=== PATIENT | male | born 1995 | race Caucasian/White ===

== ENCOUNTER 2017-03-21 12:20 | Emergency (ER) | payer MEDICAID, OTHER ==
[2017-03-21 12:51] VITALS: BP 159/73
[2017-03-21] MEDS ORDERED: Ibuprofen 600 MG Tab PO ONE (12:56)
--- NOTE | 2017-03-21 13:50 | EDM.PDOC ---
ED HPI GENERAL MEDICAL PROBLEM - General Chief Complaint: Chest Pain Stated Complaint: CHEST PAIN Time Seen by Provider: 03/21/17 12:22 Source of Information: Reports: Patient History Limitations: Reports: No Limitations - History of Present Illness INITIAL COMMENTS - FREE TEXT/NARRATIVE: History of present illness: Patient started having chest wall pain 5 days ago. He denies any trauma, strenuous physical exertion, shortness of breath, fevers, chills or cough or dizziness. Pain radiates to his left side of his chest when he gets up from a laying position. Review of systems: As per history of present illness and below otherwise all systems reviewed and negative. Past medical history: As per history of present illness and as reviewed below otherwise noncontributory. Surgical history: As per history of present illness and as reviewed below otherwise noncontributory. Social history: No reported history of drug or alcohol abuse. Family history: As per history of present illness and as reviewed below otherwise noncontributory. Physical exam: General: Well developed, well nourished in NAD HEENT: Atraumatic, normocephalic, pupils reactive, negative for conjunctival pallor or scleral icterus, mucous membranes moist, throat clear, neck supple, nontender, trachea midline. Lungs: Clear to auscultation, breath sounds equal bilaterally, chest with reproducible tenderness to palpation over his sternum and left lateral chest. Heart: S1S2, regular, negative for clicks, rubs, or JVD. Abdomen: Soft, nondistended, nontender. Negative for masses or hepatosplenomegaly. Negative for costovertebral tenderness. Pelvis: Stable nontender. Genitourinary: Deferred. Rectal: Deferred. Extremities: Atraumatic, negative for cords or calf pain. Neurovascular unremarkable. Neuro: Awake, alert, oriented. Cranial nerves II through XII unremarkable. Cerebellum unremarkable. Motor and sensory unremarkable throughout. Exam nonfocal. Diagnostics: []Chest x-ray is negative Therapeutics: []Ibuprofen Impression: []chest wall pain Plan: []Ibuprofen, heat for comfort follow-up with primary care return if symptoms worsen or change. Definitive disposition and diagnosis as appropriate pending reevaluation and review of above. Sternum Pain Score (Numeric/FACES): 9 - Related Data Allergies Allergy/AdvReac Type Severity Reaction Status Date / Time No Known Allergies Allergy Verified 09/26/15 21:12 Past Medical History - Past Health History Medical/Surgical History: Denies Medical/Surgical History Social & Family History - Family History Family Medical History: Noncontributory - Tobacco Use Smoking Status *Q: Current Every Day Smoker Years of Tobacco use: 2 Packs/Tins Daily: 1 Second Hand Smoke Exposure: No - Alcohol Use Days Per Week of Alcohol Use: 0 - Recreational Drug Use Recreational Drug Use: No ED ROS GENERAL - Review of Systems Review Of Systems: See Below (See history of present illness) ED EXAM, GENERAL - Physical Exam Exam: See Below (See history of present illness) Course - Vital Signs Last Recorded V/S: Last Vital Signs Temp 98.0 F 03/21/17 12:49 Pulse 70 03/21/17 12:49 Resp 18 03/21/17 12:49 BP 159/73 H 03/21/17 12:49 Pulse Ox 97 03/21/17 12:49 - Orders/Labs/Meds Orders: Active Orders 24 hr Category Date Time Status Chest 2V [CR] Stat Exams 03/21/17 12:56 Taken Meds: Medications Discontinued Medications Generic Name Dose Route Start Last Admin Trade Name Tejinderq PRN Reason Stop Dose Admin Ibuprofen 600 mg 03/21/17 12:56 03/21/17 13:41 Motrin PO 03/21/17 12:57 600 mg ONETIME ONE Administration Departure - Departure Time of Disposition: 13:49 Disposition: Home, Self-Care 01 Condition: Good Clinical Impression: Chest wall pain - Discharge Information Referrals: Heath Neumann MD [Primary Care Provider] - Additional Instructions: The following information is given to patients seen in the emergency department who are being discharged to home. This information is to outline your options for follow-up care. We provide all patients seen in our emergency department with a follow-up referral. The need for follow-up, as well as the timing and circumstances, are variable depending upon the specifics of your emergency department visit. If you don't have a primary care physician on staff, we will provide you with a referral. We always advise you to contact your personal physician following an emergency department visit to inform them of the circumstance of the visit and for follow-up with them and/or the need for any referrals to a consulting specialist. The emergency department will also refer you to a specialist when appropriate. This referral assures that you have the opportunity for follow-up care with a specialist. All of these measure are taken in an effort to provide you with optimal care, which includes your follow-up. Under all circumstances we always encourage you to contact your private physician who remains a resource for coordinating your care. When calling for follow-up care, please make the office aware that this follow-up is from your recent emergency room visit. If for any reason you are refused follow-up, please contact the [facility] Emergency Department at and asked to speak to the emergency department charge nurse. Use ibuprofen and/or heat for comfort follow-up with primary care physician return of symptoms worsen or change. [facility] [address] [place] [id number] - My Orders Last 24 Hours: My Active Orders 03/21/17 12:56 Chest 2V [CR] Stat - Assessment/Plan Last 24 Hours: My Active Orders 03/21/17 12:56 Chest 2V [CR] Stat
--- NOTE | 2017-03-23 10:16 | CR ---
EXAM DATE: 03/21/17 PATIENT'S AGE: 21 Patient: AMBAR GUNDERSON Facility: [place], [place] Site . Site : 1995 Study: XRay Chest [id number]/6/2018 1:14:50 PM Ordering Physician: Zach Bangura Final Report: HISTORY: Chest pain, shortness of breath. TECHNIQUE: Two views of the chest. COMPARISON: No prior. FINDINGS: Cardiac size and pulmonary vasculature are within normal limits. There is no acute lung infiltrate or pulmonary edema. No pneumothorax or pleural effusion. No acute bony abnormality. IMPRESSION: No acute disease. Dictated by Dagoberto Spaulding MD @ 03/21/2017 1:43:45 PM Dictated by: Dagoberto Spaulding MD @ 03/21/2017 13:43:51 (Electronic Signature) Report Signed by Proxy. [facility]
== END 2017-03-21 14:10 | disposition home or self-care (01) ==
LOC: MW.ED 12:20
DX: R07.89 Other chest pain (principal); F17.210 Nicotine dependence, cigarettes, uncomplicated
CPT/HCPCS: 71046; 99283; A9270

== ENCOUNTER 2017-06-28 02:30 | Emergency (ER) | payer OTHER ==
--- NOTE | 2017-06-28 03:24 | EDM.PDOC ---
ED HPI GENERAL MEDICAL PROBLEM - General Chief Complaint: Lower Extremity Injury/Pain Stated Complaint: PAIN IN RIGHT KNEE Time Seen by Provider: 06/28/17 03:22 - History of Present Illness INITIAL COMMENTS - FREE TEXT/NARRATIVE: HISTORY AND PHYSICAL: History of present illness: Patient 22-year-old male presents with a concern of acute right knee injury that occurred when he twisted his knee at work he denies other trauma or concern Review of systems: As per history of present illness and below otherwise all systems reviewed and negative. Past medical history: As per history of present illness and as reviewed below otherwise noncontributory. Surgical history: As per history of present illness and as reviewed below otherwise noncontributory. Social history: No reported history of drug or alcohol abuse. Family history: As per history of present illness and as reviewed below otherwise noncontributory. Physical exam: HEENT: Atraumatic, normocephalic, pupils reactive, negative for conjunctival pallor or scleral icterus, mucous membranes moist, throat clear, neck supple, nontender, trachea midline. Lungs: Clear to auscultation, breath sounds equal bilaterally, chest nontender. Heart: S1S2, regular, negative for clicks, rubs, or JVD. Abdomen: Soft, nondistended, nontender. Negative for masses or hepatosplenomegaly. Negative for costovertebral tenderness. Pelvis: Stable nontender. Genitourinary: Deferred. Rectal: Deferred. Extremities: Mild pain swelling noted right knee is no crepitation or point tenderness joint is grossly stable CMS neurovascular exams unremarkable Neuro: Awake, alert, oriented. Cranial nerves II through XII unremarkable. Cerebellum unremarkable. Motor and sensory unremarkable throughout. Exam nonfocal. Diagnostics: X-ray right knee Therapeutics: Immobilizer/crutches Impression: #1 acute right knee injury Definitive disposition and diagnosis as appropriate pending reevaluation and review of above. right knee Pain Score (Numeric/FACES): 9 - Related Data Allergies Allergy/AdvReac Type Severity Reaction Status Date / Time No Known Allergies Allergy Verified 06/28/17 02:36 Home Meds: Home Meds . [No Known Home Meds] 03/21/17 [History] Past Medical History - Past Health History Medical/Surgical History: Denies Medical/Surgical History Social & Family History - Family History Family Medical History: Noncontributory - Tobacco Use Smoking Status *Q: Never Smoker Years of Tobacco use: 2 Packs/Tins Daily: 1 Second Hand Smoke Exposure: No - Alcohol Use Days Per Week of Alcohol Use: 0 - Recreational Drug Use Recreational Drug Use: No Review of Systems - Review of Systems Review Of Systems: ROS reveals no pertinent complaints other than HPI. ED EXAM, GENERAL - Physical Exam Exam: See Below (See dictation) Course - Vital Signs Last Recorded V/S: Last Vital Signs Temp 36.8 C 06/28/17 02:30 Pulse 83 06/28/17 02:30 Resp 18 06/28/17 02:30 BP 142/72 H 06/28/17 02:30 Pulse Ox 96 06/28/17 02:30 - Orders/Labs/Meds Orders: Active Orders 24 hr Category Date Time Status Knee 3V Rt [CR] Stat Exams 06/28/17 02:40 Taken Departure - Departure Time of Disposition: 03:23 Disposition: Home, Self-Care 01 Condition: Good Clinical Impression: Knee injury - Discharge Information Referrals: Heath Neumann MD [Primary Care Provider] - Additional Instructions: The following information is given to patients seen in the emergency department who are being discharged to home. This information is to outline your options for follow-up care. We provide all patients seen in our emergency department with a follow-up referral. The need for follow-up, as well as the timing and circumstances, are variable depending upon the specifics of your emergency department visit. If you don't have a primary care physician on staff, we will provide you with a referral. We always advise you to contact your personal physician following an emergency department visit to inform them of the circumstance of the visit and for follow-up with them and/or the need for any referrals to a consulting specialist. The emergency department will also refer you to a specialist when appropriate. This referral assures that you have the opportunity for followup care with a specialist. All of these measure are taken in an effort to provide you with optimal care, which includes your followup. Under all circumstances we always encourage you to contact your private physician who remains a resource for coordinating your care. When calling for followup care, please make the office aware that this follow-up is from your recent emergency room visit. If for any reason you are refused follow-up, please contact the [facility] emergency department at and asked to speak to the emergency department charge nurse. ARTURO [facility] Specialty Care - Orthopedic Clinic Professional Building [address] [place] [address], [address] [place] [address] Immobilizer crutches follow-up orthopedic clinic call to schedule appointment Motrin/Tylenol as directed return as needed as discussed - My Orders Last 24 Hours: My Active Orders 06/28/17 02:40 Knee 3V Rt [CR] Stat - Assessment/Plan Last 24 Hours: My Active Orders 06/28/17 02:40 Knee 3V Rt [CR] Stat
[2017-06-28 03:48] VITALS: BP 148/93
--- NOTE | 2017-06-29 13:17 | CR ---
EXAM DATE: 06/28/17 PATIENT'S AGE: 22 Patient: AMBAR GUNDERSON Facility: [place], [place] Site . Site : 1995 Study: XRay Knee Right [id number]/15/2018 3:20:49 AM Ordering Physician: Doctor Quiroz Final Report: INDICATION: INJURED RT KNEE THIS AM TECHNIQUE: Three views of the right knee COMPARISON: None FINDINGS: Bones: No fractures or bone lesions. Joint spaces: Unremarkable. Soft tissues: Unremarkable. IMPRESSION: No acute bony abnormality. Dictated by Epifanio Sanford MD @ 06/28/2017 3:27:30 AM Dictated by: Epifanio Sanford MD @ 06/28/2017 03:27:43 (Electronic Signature) Report Signed by Proxy. [facility]ANKalyan
== END 2017-06-28 03:42 | disposition home or self-care (01) ==
LOC: MW.ED 02:30
DX: S89.91XA Unspecified injury of right lower leg, initial encounter (principal); Y99.0 Civilian activity done for income or pay; X50.1XXA Overexertion from prolonged static or awkward postures, initial encounter
CPT/HCPCS: 73562-26-RT; 73562-RT; 99283

== ENCOUNTER 2017-07-18 13:48 | Emergency (ER) | payer OTHER, BC ==
[2017-07-18 13:59] VITALS: BP 112/57
[2017-07-18] MEDS ORDERED: Lidocaine 1% 20 ML MDV INJECT ONE (13:59)
[2017-07-18] MEDS ORDERED: Bacitracin Oint 1 GM U/D Packet TOP ONE (14:01)
--- NOTE | 2017-07-18 14:05 | EDM.PDOC ---
ED HPI GENERAL MEDICAL PROBLEM - General Chief Complaint: Laceration Stated Complaint: CUT TUMB ON RT HAND Time Seen by Provider: 07/18/17 13:55 Source of Information: Reports: Patient History Limitations: Reports: No Limitations - History of Present Illness INITIAL COMMENTS - FREE TEXT/NARRATIVE: HISTORY AND PHYSICAL: History of present illness: Jaja is a 22-year-old male here for laceration to his right hand. He reports that 20 minutes ago he was cutting open a package with a knife, slipped and cut his right thenar eminence. He is up-to-date on tetanus.] Review of systems: As per history of present illness and below otherwise all systems reviewed and negative. Past medical history: As per history of present illness and as reviewed below otherwise noncontributory. Surgical history: As per history of present illness and as reviewed below otherwise noncontributory. Social history: No reported history of drug or alcohol abuse. Family history: As per history of present illness and as reviewed below otherwise noncontributory. Physical exam: HEENT: Atraumatic, normocephalic, pupils reactive, negative for conjunctival pallor or scleral icterus, mucous membranes moist, throat clear, neck supple, nontender, trachea midline. Skin: There is a 1 cm laceration to the right thenar eminence. Extremities: Atraumatic, negative for cords or calf pain. Neurovascular unremarkable. CMS intact Neuro: Awake, alert, oriented. Cranial nerves II through XII unremarkable. Cerebellum unremarkable. Motor and sensory unremarkable throughout. Exam nonfocal. Notes: See procedure note Diagnostics: [] Therapeutics: [] Impression: [Right hand laceration] Plan: [Right hand laceration 1. Keep the area clean and dry 2. Follow-up for suture removal in 7 days 3. Follow-up for any signs of infection as needed as discussed] Definitive disposition and diagnosis as appropriate pending reevaluation and review of above. Onset: Today Right Hand Pain Score (Numeric/FACES): 10 - Related Data Allergies Allergy/AdvReac Type Severity Reaction Status Date / Time No Known Allergies Allergy Verified 07/18/17 13:56 Home Meds: Home Meds . [No Known Home Meds] 03/21/17 [History] Past Medical History - Past Health History Medical/Surgical History: Denies Medical/Surgical History - Past Surgical History Musculoskeletal Surgical History: Reports: Other (See Below) Other Musculoskeletal Surgeries/Procedures:: screw in left foot Social & Family History - Family History Family Medical History: Noncontributory - Tobacco Use Smoking Status *Q: Never Smoker Years of Tobacco use: 2 Packs/Tins Daily: 1 Second Hand Smoke Exposure: No - Caffeine Use Caffeine Use: Reports: Energy Drinks - Alcohol Use Days Per Week of Alcohol Use: 0 - Recreational Drug Use Recreational Drug Use: No ED ROS GENERAL - Review of Systems Review Of Systems: ROS reveals no pertinent complaints other than HPI. ED EXAM, SKIN/RASH Exam: See Below (See dictation) ED SKIN PROCEDURES - Laceration/Wound Repair Right Hand Lac/Wound length In cm: 1 Appearance: Superficial, Linear, Clean Distal NVT: Neuro & Vascular Intact, No Tendon Injury Anesthetic Type: Local Local Anesthesia - Lidocaine (Xylocaine): 1% Plain Local Anesthetic Volume: 2cc Skin Prep: Saline Saline Irrigation (cc's): 500 Exploration/Debridement/Repair: Wound Explored, In a Bloodless Field, Explored to Base, No Foreign Material Found Closed with: Sutures Suture Size: 4-0 # of Sutures: 4 Suture Type: Nylon Sterile Dressing Applied: Nurse Tetanus Status Addressed: Yes Complications: No Course - Vital Signs Last Recorded V/S: Last Vital Signs Temp 36.3 C 07/18/17 13:56 Pulse 69 07/18/17 13:56 Resp 16 07/18/17 13:56 BP 112/57 L 07/18/17 13:56 Pulse Ox 98 07/18/17 13:56 - Orders/Labs/Meds Meds: Medications Discontinued Medications Generic Name Dose Route Start Last Admin Trade Name Crispin PRN Reason Stop Dose Admin Bacitracin 1 dose 07/18/17 14:01 07/18/17 14:05 Bacitracin Oint 1 Gm TOP 07/18/17 14:02 1 dose ONETIME ONE Administration Lidocaine HCl 20 ml 07/18/17 13:59 07/18/17 14:05 Xylocaine 1% INJECT 07/18/17 14:00 20 ml ONETIME ONE Administration Departure - Departure Time of Disposition: 14:32 Disposition: Home, Self-Care 01 Condition: Good Clinical Impression: Laceration of right hand - Discharge Information Instructions: Laceration Care, Adult, [id number] Referrals: PCP,None [Primary Care Provider] - Forms: ED Department Discharge Additional Instructions: The following information is given to patients seen in the emergency department who are being discharged to home. This information is to outline your options for follow-up care. We provide all patients seen in our emergency department with a follow-up referral. The need for follow-up, as well as the timing and circumstances, are variable depending upon the specifics of your emergency department visit. If you don't have a primary care physician on staff, we will provide you with a referral. We always advise you to contact your personal physician following an emergency department visit to inform them of the circumstance of the visit and for follow-up with them and/or the need for any referrals to a consulting specialist. The emergency department will also refer you to a specialist when appropriate. This referral assures that you have the opportunity for follow-up care with a specialist. All of these measure are taken in an effort to provide you with optimal care, which includes your follow-up. Under all circumstances we always encourage you to contact your private physician who remains a resource for coordinating your care. When calling for follow-up care, please make the office aware that this follow-up is from your recent emergency room visit. If for any reason you are refused follow-up, please contact the [facility] Emergency Department at and asked to speak to the emergency department charge nurse. Right hand laceration 1. Keep the area clean and dry 2. Follow-up for suture removal in 7 days 3. Follow-up for any signs of infection as needed as discussed
== END 2017-07-18 14:47 | disposition home or self-care (01) ==
LOC: MW.ED 13:48
DX: S61.411A Laceration without foreign body of right hand, initial encounter (principal); W26.0XXA Contact with knife, initial encounter
CPT/HCPCS: 99282